=== PATIENT | male | born 1975 | race African-American/Black ===

== ENCOUNTER → 2016-09-07 | Outpatient (CLI) | payer OTHER ==
--- NOTE | 2016-09-07 10:18 | NM ---
EXAMINATION TYPE: NM gastric emptying study DATE OF EXAM: 09/07/2016 COMPARISON: NONE HISTORY: Nausea with vomiting per order. Additional symptoms of epigastric pain, diminished appetite, and heartburn and reflux-like symptoms per patient. Following administration of 2.2 mCi Tc 99m Sulfur Colloid with 1 cup of oatmeal projection images of the abdomen were obtained 10 minutes post ingestion. When possible, both anterior and posterior proje ction images were obtained to allow the calculation of the geometric mean activity. Clearance: 79 % at 60 minutes Half-life: 10 min Reflux screen: None IMPRESSION: No gastroparesis. Abnormally fast emptying is actually noted. Gastric emptying normal percentage values: 30 minutes: <70% of retention (> 30% emptying) suggests abnormally fast emptying. 60 minutes: <90% retention (>10% emptying) is normal; less than 30% retention (>70% emptying) suggest s abnormally rapid emptying. 90 minutes: <65% retention (> 35% emptying) is normal. 120 minutes: <60% retention (> 40% emptying) is normal. 180 minutes: <30% retention (> 70% emptying) is normal. Gastric emptying T-1/2: Solid: The normal range is 60-105 minutes Liquid only: Normal range is 10-45 minutes. Liquid only-children: At 60 minutes, normal range is 44-58 % . Liquid only-infants: At 60 minutes, normal range is 32-64 %. Additional references: Gastric Emptying Scintigraphy [email or web address]://[email or web address]
== END | disposition home or self-care (01) ==
LOC: RADNMMAIN 07:35
PROVIDERS: ATTEND Physician Assistant
DX: R11.2 Nausea with vomiting, unspecified (principal)
CPT/HCPCS: 78264; A9541

== ENCOUNTER → 2017-06-23 | Outpatient (CLI) | payer OTHER ==
--- NOTE | 2017-06-23 11:51 | US ---
EXAMINATION TYPE: US kidneys/renal and bladder DATE OF EXAM: 06/23/2017 COMPARISON: NONE CLINICAL HISTORY: E87.1 Hypotremia. EXAM MEASUREMENTS: Right Kidney: 10.2 x 5.5 x 9.7 cm Left Kidney: 9.7 x 5.1 x 4.8 cm Post Void Residual Volume: 1.1 mL Limited due to bowel gas Right Kidney: appears wnl Left Kidney: appears wnl Bladder: ?thickened bladder wall Bilateral Jets seen: No Normal Post Void Residual: Yes IMPRESSION: 1. No acute abnormality. 2. Possible thickening of the urinary bladder wall. This could be related to incomplete distention.
== END | disposition home or self-care (01) ==
LOC: RADUSWWP 11:00
PROVIDERS: ATTEND Internal Medicine Nephrology
DX: E87.1 Hypo-osmolality and hyponatremia (principal)
CPT/HCPCS: 76770

== ENCOUNTER 2017-06-24 07:44 | Day surgery (SDC) | payer OTHER ==
[2017-06-22 16:23] VITALS: BMI 18.0
[~2017-06-24 07:44] MED LIST: LACTATED RINGERS 1,000 ML IV SCH
[2017-06-24 08:00] VITALS: TEMP 97.1
[2017-06-24] MEDS ORDERED: LIDOCAINE 1% 20 ML VIAL (10MG/ML) FOR IV START INTRADERMA ONE (08:03)
[2017-06-24 08:05] LABS: Glucose,Whole Blood 157 mg/dL (75-99)
[2017-06-24] MEDS ORDERED: PROPOFOL 10 MG/ML 20 ML VIAL IV ONE (08:56)
[2017-06-24] MEDS ORDERED: LIDOCAINE 1% INJ 10MG/ML (20 ML MDV) ONE (08:56)
[2017-06-24 09:35] VITALS: RESP 16
--- NOTE | 2017-06-24 09:39 | P.PCN ---
Date of Procedure: 06/24/17 Procedure(s) Performed: Procedures: 1. Esophagogastroduodenoscopy and biopsy. 2. Colonoscopy and biopsy. Preoperative diagnosis: Abdominal pain and change in bowel habits. Postoperative diagnosis: 1. Small sliding hiatal hernia with no obvious esophagitis or complicated reflux disease. 2. Mild antral gastritis. 3. Poor colon preparation, otherwise, exam to the cecum showed no obvious abnormalities. 4. Biopsies obtained from the duodenum, antrum, esophagus and right colon. Preparation: HalfLytely prep. Sedation: Was provided by anesthesia. Brief clinical history: The patient is a 41-year-old male who was evaluated in the office last month for abdominal pain and change in bowel habits. His pain has been mostly in the epigastric area, intermittent for more than one year. It occurs after meals worse with larger or greasy food. For the last 5 months he has been having 3-4 bowel movement daily and to him it appears oily. A 72- hour stool study for fecal fat was within normal limits. The patient has been on omeprazole 20 mg daily. He has no heartburn or passive regurgitation on this treatment but still have occasional nausea. No more vomiting. He reports feeling full quickly. He was diagnosed with diabetes mellitus in September 2015 and lost 32 pounds in 6 months at that time and his weight has been stable for the last year. His diabetes is not well controlled. This evaluation is to assess for peptic ulcer disease complicated reflux disease or colonic pathology. Procedure: With the patient on his left lateral decubitus position and after informed consent and adequate sedation, I passed the Olympus-GIF 160 video upper endoscope through the cricopharyngeus down the esophagus. GE junction was around 40-41 cm from the incisors and there was a small sliding hiatal hernia but no obvious esophagitis or complicated reflux. The endoscope was then passed into the stomach which was insufflated with air and inspected in detail including the retroflex view in the cardia. There was some mottling and erythema in the antrum but no ulcers or erosions. There were no phytobezoar or other evidence of gastroparesis. Pyloric channel, duodenal bulb, post bulbar area and descending duodenum appeared within normal limits. Because of his symptoms, I obtained biopsies from the duodenum, antrum and esophagus then the endoscope was withdrawn and I proceeded with the colonoscopy. Perianal area did not show any fissures or fistulas. There were no masses felt on digital rectal examination. The Olympus CFQ 160L video colonoscope was then inserted in the rectum in the usual fashion and advanced to the cecum. Unfortunately, the preparation was extremely poor. I did not see any large polyps or tumors or any obstruction. Where visualized, the mucosa appeared healthy. Because of his poor preparation I was not able to intubate the ileocecal valve. I obtained biopsies from the right colon then the endoscope was withdrawn. The patient tolerated the procedure well. Plan I summarized the findings to the patient. Will await biopsy results. He will follow up in our office and with you as planned and we would keep you updated on his progress.
[2017-06-24 09:40] LABS: Glucose,Whole Blood 29 mg/dL (75-99)
[2017-06-24 09:41] LABS: Glucose,Whole Blood 32 mg/dL (75-99)
[2017-06-24] MEDS ORDERED: DEXTROSE 50%-WATER 50 ML SYRINGE IVP ONE (09:41)
[2017-06-24 09:54] LABS: Glucose,Whole Blood 116 mg/dL (75-99)
[2017-06-24 10:01] VITALS: BP 111/65; PULSE 92
== END 2017-06-24 10:22 | disposition home or self-care (01) ==
LOC: ORWHC2ENDO 07:44
DX: K29.50 Unspecified chronic gastritis without bleeding (principal); K44.9 Diaphragmatic hernia without obstruction or gangrene; E11.65 Type 2 diabetes mellitus with hyperglycemia; K21.9 Gastro-esophageal reflux disease without esophagitis; I10 Essential (primary) hypertension; M10.9 Gout, unspecified; D57.1 Sickle-cell disease without crisis; R56.9 Unspecified convulsions; F32.9 Major depressive disorder, single episode, unspecified; F41.9 Anxiety disorder, unspecified; F10.10 Alcohol abuse, uncomplicated; F17.200 Nicotine dependence, unspecified, uncomplicated; Z79.4 Long term (current) use of insulin; Z79.891 Long term (current) use of opiate analgesic; Z79.899 Other long term (current) drug therapy; Z98.1 Arthrodesis status
CPT/HCPCS: 88305; 45380; 43239; J2001; J2704

== ENCOUNTER → 2017-06-25 | Outpatient (CLI) | payer OTHER ==
--- NOTE | 2017-06-25 10:50 | MR ---
EXAMINATION TYPE: MR brain wo/w con DATE OF EXAM: 06/25/2017 COMPARISON: NONE HISTORY: Tinnitus, left ear CONTRAST: Performed utilizing 5 mL intravenous Gadavist gadolinium contrast. TECHNIQUE: Multiplanar, multiecho imaging on a 3.0 Stephanie magnet is performed through the brain. Stud y is performed within 24 hours of arrival to the hospital. The craniovertebral junction is normal. The pituitary is normal. Diffusion-weighted imaging is performed. No abnormal hyperintensity is present to suggest an acute i ntracranial infarct or acute ischemic change. There are couple punctate subcortical white matter changes near the left centrum semiovale vertex. Th maría are nonspecific and not out of proportion to the patient age. No abnormal enhancement is evident. Ventricles and sulci are appropriate for the patient age. There are fluid-filled left mastoid air cells. Correlate for acute left mastoiditis. Some mild mucosa l thickening is within ethmoid air cells. IMPRESSIONS: 1. Normal pre and postcontrast intracranial MRI brain. 2. Fluid within the left mastoid air cells. Correlate for acute left mastoiditis.
== END | disposition home or self-care (01) ==
LOC: RADMRIMAIN 09:58
PROVIDERS: ATTEND Family Medicine
DX: H74.8X2 Other specified disorders of left middle ear and mastoid (principal)
CPT/HCPCS: 70553; A9581

== ENCOUNTER → 2017-07-13 | Outpatient (CLI) | payer OTHER ==
--- NOTE | 2017-07-13 08:53 | XR ---
EXAMINATION TYPE: XR foot complete LT DATE OF EXAM: 07/13/2017 CLINICAL HISTORY: pain TECHNIQUE: Frontal, lateral and oblique images of the left foot are obtained. COMPARISON: None. FINDINGS: Bunionectomy changes first metatarsal. There is no acute fracture/dislocation evident. The joint spaces appear within normal limits. The overlying soft tissue appears unremarkable. IMPRESSION: There is no acute fracture or dislocation. ICD 10 NO FRACTURE, INITIAL EVALUATION
[2017-07-13 08:57] LABS: Blood Urea Nitrogen 10 mg/dL (9-20)
--- NOTE | 2017-07-13 11:41 | CT ---
EXAMINATION TYPE: CT abdomen pelvis w con DATE OF EXAM: 07/13/2017 COMPARISON: NONE HISTORY: Abnormal weight loss per order and patient (R 63.4). CT DLP: 351.10 mGycm, Automated Exposure Control for Dose Reduction was Utilized. CONTRAST: CT scan of the abdomen and pelvis is performed with oral and with IV Contrast, patient injected with 100 ml mL of Isovue 300. FINDINGS: Patient has very little intra-abdominal fat making evaluation suboptimal. LUNG BASES: No significant abnormality is appreciated. LIVER/GB: No significant abnormality is appreciated. PANCREAS: Pancreas is small in size with calcifications throughout its entire course. CT findings are consistent with product of chronic pancreatitis. SPLEEN: No significant abnormality is seen. ADRENALS: No significant abnormality is seen. KIDNEYS: There is symmetric cortical medullary uptake and excretion from both kidneys without evidenc e of concerning renal mass or hydronephrosis bilaterally. A few scattered pelvic phleboliths are pres ent. BOWEL: Oral contrast does not reach colonic level making evaluation slightly submitted optimal. There is no suspicious dilatation of stomach or small bowel loops. There is small bowel feces sign in the terminal ileum consistent with delayed passage of ingested material 2 colonic level. There is promine nce of fecal material throughout the entire visualized colon into rectum. PROSTATE/SEMINAL VESICLES: No gross abnormality seen. LYMPH NODES: No greater than 1cm abdominal or pelvic lymph nodes are appreciated. OSSEOUS STRUCTURES: No significant abnormality is seen. OTHER: There is mild to moderate calcified plaque of aorta extending into branch vessels. IMPRESSION: 1. No worrisome mass or adenopathy is seen. 2. Overall nonobstructive bowel gas pattern. Fairly moderate to severe diffuse colonic fecal stasis o r constipation is noted. CT findings consistent with chronic pancreatitis are present.
== END | disposition home or self-care (01) ==
LOC: RADCTMAIN 08:04
PROVIDERS: ATTEND Internal Medicine Gastroenterology
DX: M79.672 Pain in left foot (principal); R63.4 Abnormal weight loss; R19.5 Other fecal abnormalities
CPT/HCPCS: 82565; 84520; 73630; 74177; 36415; Q9967

== ENCOUNTER 2018-04-04 23:23 | Observation (INO) | payer OTHER ==
[2018-04-04] MEDS ORDERED: HYDROmorphone 1 MG/ML 1 ML SYRINGE IVP STA (23:42)
[2018-04-04] MEDS ORDERED: SODIUM CHLORIDE 0.9% 500 ML 500 ML IV STA (23:42)
[2018-04-04] MEDS ORDERED: SODIUM CHLORIDE 0.9% 1,000 ML IV STA (23:42)
[2018-04-04] MEDS ORDERED: FAMOTIDINE 20 MG/2 ML VIAL IV STA (23:43)
--- NOTE | 2018-04-05 00:03 | ED ---
Abdominal Pain HPI <Anahi Fuentes Guy - Last Filed: 04/05/18 02:32> - General Source: patient, RN notes reviewed Mode of arrival: ambulatory Limitations: no limitations - History of Present Illness MD Complaint: abdominal pain, other <Cristhian Forde - Last Filed: 04/06/18 17:25> - General Chief Complaint: Abdominal Pain Stated Complaint: Vomiting, Abd Pain Time Seen by Provider: 04/04/18 23:33 - History of Present Illness Initial Comments: This is a 42-year-old male who states he's had the onset of upper epigastric pain with coffee-ground emesis and black colored stools over last at least couple days. He does admit that he had been taking Pepto-Bismol but he states coffee-ground emesis was both before and after taking Pepto-Bismol. He states the pain is 10/10 achy in nature he's had no fevers chills nausea vomiting sweats he does have a history of fatty liver cancer pancreatic issues. No prior abdominal surgeries he denies any recent alcohol a history of ulcers in the past a trauma any other symptoms at this time. No prior history of GI bleed. (Cristhian Forde) - Related Data Home Medications Medication Instructions Recorded Confirmed Folic Acid 1 mg PO DAILY 10/04/13 04/05/18 Lisinopril [Zestril] 10 mg PO DAILY 10/04/13 04/05/18 Thiamine [Vitamin B-1] 100 mg PO DAILY 10/04/13 04/05/18 Hydrocodone/Acetaminophen [Sutherland 1 tab PO BID PRN 09/18/15 04/05/18 7.5-325] Lacosamide [Vimpat] 100 mg PO BID 09/18/15 04/05/18 Potassium Chloride ER [K-Dur 10] 10 meq PO DAILY 09/18/15 04/05/18 levETIRAcetam [Keppra] 500 mg PO BID 11/11/15 04/05/18 Magnesium Oxide [Mag-Ox] 400 mg PO BID 06/22/17 04/05/18 PARoxetine HCL [Paxil] 30 mg PO DAILY 06/22/17 04/05/18 Atorvastatin [Lipitor] 10 mg PO DAILY 04/05/18 04/05/18 INSULIN LISPRO (For Pump) [humaLOG 0.01 units SQ-PUMP CONTINUOUS 04/05/18 (For Pump)] Lipase/Protease/Amylase [Aj Roman 24,000 units PO TID 04/05/18 04/05/18 12,000 Units Capsule] QUEtiapine [SEROquel] 100 mg PO HS 04/05/18 04/05/18 Vitamin D2 20,000 Units 20,000 units PO MO 04/05/18 04/05/18 Previous Rx's Medication Instructions Recorded Mirtazapine [Remeron] 45 mg PO HS tablet 04/06/18 Pantoprazole Sodium [Protonix] 40 mg PO DAILY #15 tablet. 04/06/18 Allergies Allergy/AdvReac Type Severity Reaction Status Date / Time No Known Allergies Allergy Verified 04/05/18 06:44 Review of Systems ROS Other: All systems not noted in ROS Statement are negative. <Anahi Fuentes - Last Filed: 04/05/18 02:32> ROS Other: All systems not noted in ROS Statement are negative. <Cristhian Forde - Last Filed: 04/06/18 17:25> ROS Statement: Those systems with pertinent positive or pertinent negative responses have been documented in the HPI. Past Medical History Past Medical History: Diabetes Mellitus, GERD/Reflux, Hyperlipidemia, Hypertension, Seizure Disorder Additional Past Medical History / Comment(s): past metabolic encephalopathy from seizure disorder, recurrent seizure disorder r/t missed meds, chronic alcohol usage, gout, hypoalbuminemia from alcoholism, HTN. Other hx: anemia with sickle cell "trait" per significant other, abdominal pain with vomiting and diarrhea over past 6 months-was to have upper and lower endoscopies but pt cancelled.ringing in his ears History of Any Multi-Drug Resistant Organisms: None Reported Past Surgical History: Back Surgery Additional Past Surgical History / Comment(s): 2013 egd with bx, left toe surgery with 2 screws Past Anesthesia/Blood Transfusion Reactions: No Reported Reaction Past Psychological History: Anxiety, Depression Smoking Status: Current every day smoker Past Alcohol Use History: Occasional Past Drug Use History: Marijuana - Past Family History Father Family Medical History: Unable to Obtain Additional Family Medical History / Comment(s): Father was murdered in his 30's Mother Family Medical History: No Reported History, Hypertension Additional Family Medical History / Comment(s): Mother is 64 yrs old Brother(s) Family Medical History: Hypertension Sister(s) Family Medical History: Hypertension <Cristhian Forde - Last Filed: 04/06/18 17:25> General Exam <Anahi Fuentes P - Last Filed: 04/05/18 02:32> Limitations: no limitations General appearance: alert, in no apparent distress Head exam: Present: atraumatic, normocephalic, normal inspection Eye exam: Present: normal appearance, PERRL, EOMI. Absent: scleral icterus, conjunctival injection, periorbital swelling ENT exam: Present: normal exam, mucous membranes moist Neck exam: Present: normal inspection. Absent: tenderness, meningismus, lymphadenopathy Respiratory exam: Present: normal lung sounds bilaterally. Absent: respiratory distress, wheezes, rales, rhonchi, stridor Cardiovascular Exam: Present: regular rate, normal rhythm, normal heart sounds. Absent: systolic murmur, diastolic murmur, rubs, gallop, clicks GI/Abdominal exam: Present: soft, tenderness (Tenderness palpation of the epigastrium no guarding rebound masses or bruits), normal bowel sounds. Absent : distended, guarding, rebound, rigid Rectal exam: Present: normal inspection, other (Dark greenish black stool Hemoccult is pending) Extremities exam: Present: normal inspection, full ROM, normal capillary refill. Absent: tenderness, pedal edema, joint swelling, calf tenderness Back exam: Present: normal inspection Neurological exam: Present: alert, oriented X3, CN II-XII intact Psychiatric exam: Present: normal affect, normal mood Skin exam: Present: warm, dry, intact, normal color. Absent: rash <Cristhian Forde - Last Filed: 04/06/18 17:25> - General Exam Comments Initial Comments: This a well-developed sec appearing male who is awake alert oriented 3 (Cristhian Forde) Course <Anahi Fuentes - Last Filed: 04/05/18 02:32> <Cristhian Forde - Last Filed: 04/06/18 17:25> Vital Signs 04/04/18 04/05/18 04/05/18 23:29 02:29 06:36 Temperature 97.7 F Pulse Rate 104 H 72 78 Respiratory 18 16 16 Rate Blood Pressure 102/68 106/66 100/71 O2 Sat by Pulse 99 100 100 Oximetry - Reevaluation(s) Reevaluation #1: 04/05/18 01:00 The case is endorsed to Dr. Fuentes at shift change (Cristhian Forde) Medical Decision Making - Lab Data Result diagrams: 04/05/18 00:26 04/05/18 00:26 <Anahi Fuentes - Last Filed: 04/05/18 02:32> - Lab Data Result diagrams: 04/06/18 09:35 04/06/18 09:35 <Cristhian Forde - Last Filed: 04/06/18 17:25> - Medical Decision Making Patient care was signed out to me by Dr. Forde at shift change. At that time labs are pending. Patient's labs resulted with a critical lactic acidosis of 4.7. Additional IV fluid rehydration was ordered as well as a computed tomography scan of the abdomen Computed tomography scan revealed dilated loops of bowel consistent with an ileus. No other acute findings were noted. At this time I'll plan to admit the patient for abdominal pain, lactic acidosis and need for rehydration. (Anahi Fuentes) - Lab Data Lab Results 04/05/18 04/05/18 04/05/18 Range/Units 00:26 00:26 00:26 WBC 11.4 H (3.8-10.6) k/uL RBC 4.24 L (4.30-5.90) m/uL Hgb 12.6 L (13.0-17.5) gm/dL Hct 38.4 L (39.0-53.0) % MCV 90.5 (80.0-100.0) fL MCH 29.7 (25.0-35.0) pg MCHC 32.8 (31.0-37.0) g/dL RDW 12.8 (11.5-15.5) % Plt Count 193 (150-450) k/uL Neutrophils % 54 % Lymphocytes % 33 % Monocytes % 7 % Eosinophils % 4 % Basophils % 1 % Neutrophils # 6.1 (1.3-7.7) k/uL Lymphocytes # 3.7 (1.0-4.8) k/uL Monocytes # 0.8 (0-1.0) k/uL Eosinophils # 0.4 (0-0.7) k/uL Basophils # 0.1 (0-0.2) k/uL PT (9.0-12.0) sec INR (<1.2) APTT (22.0-30.0) sec Sodium 135 L (137-145) mmol/L Potassium 4.0 (3.5-5.1) mmol/L Chloride 92 L (98-107) mmol/L Carbon Dioxide 25 (22-30) mmol/L Anion Gap 18 mmol/L BUN 22 H (9-20) mg/dL Creatinine 1.18 (0.66-1.25) mg/dL Est GFR (CKD-EPI)AfAm 86 (>60 ml/min/1.73 sqM) Est GFR (CKD-EPI)NonAf 75 (>60 ml/min/1.73 sqM) Glucose 215 H (74-99) mg/dL Lactic Ac Sepsis Rflx Plasma Lactic Acid Erlin (0.7-2.0) mmol/L Calcium 11.0 H (8.4-10.2) mg/dL Total Bilirubin 0.8 (0.2-1.3) mg/dL AST 105 H (17-59) U/L ALT 74 H (21-72) U/L Alkaline Phosphatase 113 (38-126) U/L Total Creatine Kinase 56 (55-170) U/L CK-MB (CK-2) 1.2 (0.0-2.4) ng/mL CK-MB (CK-2) Rel Index 2.1 Troponin I <0.012 (0.000-0.034) ng/mL Total Protein 9.1 H (6.3-8.2) g/dL Albumin 5.3 H (3.5-5.0) g/dL Amylase 81 (30-110) U/L Lipase 10 L (23-300) U/L Urine Color Urine Appearance (Clear) Urine pH (5.0-8.0) Ur Specific [place] (1.001-1.035) Urine Protein (Negative) Urine Glucose (UA) (Negative) Urine Ketones (Negative) Urine Blood (Negative) Urine Nitrite (Negative) Urine Bilirubin (Negative) Urine Urobilinogen (<2.0) mg/dL Ur Leukocyte Esterase (Negative) Stool Occult Blood (Negative) Blood Type Blood Type Confirm Blood Type Recheck Antibody Screen Spec Expiration Date 04/05/18 04/05/18 04/05/18 Range/Units 00:26 00:26 00:26 WBC (3.8-10.6) k/uL RBC (4.30-5.90) m/uL Hgb (13.0-17.5) gm/dL Hct (39.0-53.0) % MCV (80.0-100.0) fL MCH (25.0-35.0) pg MCHC (31.0-37.0) g/dL RDW (11.5-15.5) % Plt Count (150-450) k/uL Neutrophils % % Lymphocytes % % Monocytes % % Eosinophils % % Basophils % % Neutrophils # (1.3-7.7) k/uL Lymphocytes # (1.0-4.8) k/uL Monocytes # (0-1.0) k/uL Eosinophils # (0-0.7) k/uL Basophils # (0-0.2) k/uL PT 11.3 (9.0-12.0) sec INR 1.1 (<1.2) APTT 22.3 (22.0-30.0) sec Sodium (137-145) mmol/L Potassium (3.5-5.1) mmol/L Chloride (98-107) mmol/L Carbon Dioxide (22-30) mmol/L Anion Gap mmol/L BUN (9-20) mg/dL Creatinine (0.66-1.25) mg/dL Est GFR (CKD-EPI)AfAm (>60 ml/min/1.73 sqM) Est GFR (CKD-EPI)NonAf (>60 ml/min/1.73 sqM) Glucose (74-99) mg/dL Lactic Ac Sepsis Rflx Plasma Lactic Acid Erlin 4.7 H* (0.7-2.0) mmol/L Calcium (8.4-10.2) mg/dL Total Bilirubin (0.2-1.3) mg/dL AST (17-59) U/L ALT (21-72) U/L Alkaline Phosphatase (38-126) U/L Total Creatine Kinase (55-170) U/L CK-MB (CK-2) (0.0-2.4) ng/mL CK-MB (CK-2) Rel Index Troponin I (0.000-0.034) ng/mL Total Protein (6.3-8.2) g/dL Albumin (3.5-5.0) g/dL Amylase (30-110) U/L Lipase (23-300) U/L Urine Color Urine Appearance (Clear) Urine pH (5.0-8.0) Ur Specific [place] (1.001-1.035) Urine Protein (Negative) Urine Glucose (UA) (Negative) Urine Ketones (Negative) Urine Blood (Negative) Urine Nitrite (Negative) Urine Bilirubin (Negative) Urine Urobilinogen (<2.0) mg/dL Ur Leukocyte Esterase (Negative) Stool Occult Blood (Negative) Blood Type O Negative Blood Type Confirm Blood Type Recheck CABO Indicated Antibody Screen NEGATIVE Spec Expiration Date 04/08/2018232504/05/18 04/05/18 04/05/18 Range/Units 00:26 01:14 01:32 WBC (3.8-10.6) k/uL RBC (4.30-5.90) m/uL Hgb (13.0-17.5) gm/dL Hct (39.0-53.0) % MCV (80.0-100.0) fL MCH (25.0-35.0) pg MCHC (31.0-37.0) g/dL RDW (11.5-15.5) % Plt Count (150-450) k/uL Neutrophils % % Lymphocytes % % Monocytes % % Eosinophils % % Basophils % % Neutrophils # (1.3-7.7) k/uL Lymphocytes # (1.0-4.8) k/uL Monocytes # (0-1.0) k/uL Eosinophils # (0-0.7) k/uL Basophils # (0-0.2) k/uL PT (9.0-12.0) sec INR (<1.2) APTT (22.0-30.0) sec Sodium (137-145) mmol/L Potassium (3.5-5.1) mmol/L Chloride (98-107) mmol/L Carbon Dioxide (22-30) mmol/L Anion Gap mmol/L BUN (9-20) mg/dL Creatinine (0.66-1.25) mg/dL Est GFR (CKD-EPI)AfAm (>60 ml/min/1.73 sqM) Est GFR (CKD-EPI)NonAf (>60 ml/min/1.73 sqM) Glucose (74-99) mg/dL Lactic Ac Sepsis Rflx Y Plasma Lactic Acid Erlin (0.7-2.0) mmol/L Calcium (8.4-10.2) mg/dL Total Bilirubin (0.2-1.3) mg/dL AST (17-59) U/L ALT (21-72) U/L Alkaline Phosphatase (38-126) U/L Total Creatine Kinase (55-170) U/L CK-MB (CK-2) (0.0-2.4) ng/mL CK-MB (CK-2) Rel Index Troponin I (0.000-0.034) ng/mL Total Protein (6.3-8.2) g/dL Albumin (3.5-5.0) g/dL Amylase (30-110) U/L Lipase (23-300) U/L Urine Color Yellow Urine Appearance Clear (Clear) Urine pH 5.0 (5.0-8.0) Ur Specific [place] 1.011 (1.001-1.035) Urine Protein Negative (Negative) Urine Glucose (UA) Negative (Negative) Urine Ketones Negative (Negative) Urine Blood Negative (Negative) Urine Nitrite Negative (Negative) Urine Bilirubin Negative (Negative) Urine Urobilinogen <2.0 (<2.0) mg/dL Ur Leukocyte Esterase Negative (Negative) Stool Occult Blood Negative (Negative) Blood Type Blood Type Confirm Blood Type Recheck Antibody Screen Spec Expiration Date 04/05/18 Range/Units 01:42 WBC (3.8-10.6) k/uL RBC (4.30-5.90) m/uL Hgb (13.0-17.5) gm/dL Hct (39.0-53.0) % MCV (80.0-100.0) fL MCH (25.0-35.0) pg MCHC (31.0-37.0) g/dL RDW (11.5-15.5) % Plt Count (150-450) k/uL Neutrophils % % Lymphocytes % % Monocytes % % Eosinophils % % Basophils % % Neutrophils # (1.3-7.7) k/uL Lymphocytes # (1.0-4.8) k/uL Monocytes # (0-1.0) k/uL Eosinophils # (0-0.7) k/uL Basophils # (0-0.2) k/uL PT (9.0-12.0) sec INR (<1.2) APTT (22.0-30.0) sec Sodium (137-145) mmol/L Potassium (3.5-5.1) mmol/L Chloride (98-107) mmol/L Carbon Dioxide (22-30) mmol/L Anion Gap mmol/L BUN (9-20) mg/dL Creatinine (0.66-1.25) mg/dL Est GFR (CKD-EPI)AfAm (>60 ml/min/1.73 sqM) Est GFR (CKD-EPI)NonAf (>60 ml/min/1.73 sqM) Glucose (74-99) mg/dL Lactic Ac Sepsis Rflx Plasma Lactic Acid Erlin (0.7-2.0) mmol/L Calcium (8.4-10.2) mg/dL Total Bilirubin (0.2-1.3) mg/dL AST (17-59) U/L ALT (21-72) U/L Alkaline Phosphatase (38-126) U/L Total Creatine Kinase (55-170) U/L CK-MB (CK-2) (0.0-2.4) ng/mL CK-MB (CK-2) Rel Index Troponin I (0.000-0.034) ng/mL Total Protein (6.3-8.2) g/dL Albumin (3.5-5.0) g/dL Amylase (30-110) U/L Lipase (23-300) U/L Urine Color Urine Appearance (Clear) Urine pH (5.0-8.0) Ur Specific [place] (1.001-1.035) Urine Protein (Negative) Urine Glucose (UA) (Negative) Urine Ketones (Negative) Urine Blood (Negative) Urine Nitrite (Negative) Urine Bilirubin (Negative) Urine Urobilinogen (<2.0) mg/dL Ur Leukocyte Esterase (Negative) Stool Occult Blood (Negative) Blood Type Blood Type Confirm O Negative Blood Type Recheck Antibody Screen Spec Expiration Date Disposition <Anahi Fuentes - Last Filed: 04/05/18 02:32> <Cristhian Forde - Last Filed: 04/06/18 17:25> Clinical Impression: Acute abdomen, Ileus, Dehydration, Lactic acidosis Disposition: ADMITTED IP TO THIS HOSP Condition: Stable
[2018-04-05 00:45] LABS: Basophils # (A) 0.1 k/uL (0-0.2); Basophils % (A) 1 %; Eosinophils # (A) 0.4 k/uL (0-0.7); Eosinophils % (A) 4 %; HCT 38.4 % (39.0-53.0); HGB 12.6 gm/dL (13.0-17.5); Lymphocytes # (A) 3.7 k/uL (1.0-4.8); Lymphocytes % (A) 33 %; MCH 29.7 pg (25.0-35.0); MCHC 32.8 g/dL (31.0-37.0); MCV 90.5 fL (80.0-100.0); Mean Platelet Volume 7.6; Monocytes # (A) 0.8 k/uL (0-1.0); Monocytes % (A) 7 %; Neutrophils # (A) 6.1 k/uL (1.3-7.7); Neutrophils % (A) 54 %; Platelet Count 193 k/uL (150-450); RBC 4.24 m/uL (4.30-5.90); RDW 12.8 % (11.5-15.5); WBC 11.4 k/uL (3.8-10.6)
--- NOTE | 2018-04-05 00:58 | XR ---
EXAMINATION TYPE: XR KUB DATE OF EXAM: 04/05/2018 COMPARISON: NONE HISTORY: Abdominal pain TECHNIQUE: 2 views upright FINDINGS: There is no sign of intestinal obstruction or pneumoperitoneum. Fecal pattern is normal. Dorys ng bases are clear. There are no pathologic calcifications over the kidneys. IMPRESSION: Nonacute abdomen.
[2018-04-05 01:01] LABS: Albumin 5.3 g/dL (3.5-5.0); Total Bilirubin 0.8 mg/dL (0.2-1.3); Total Protein 9.1 g/dL (6.3-8.2)
[2018-04-05 01:02] LABS: INR 1.1 (<1.2); Partial Thromboplastin Time 22.3 sec (22.0-30.0); Prothrombin Time 11.3 sec (9.0-12.0)
[2018-04-05 01:10] LABS: Creatine Kinase 56 U/L (55-170)
[2018-04-05 01:23] LABS: Creatine Kinase MB 1.2 ng/mL (0.0-2.4); Troponin I <0.012 ng/mL (0.000-0.034)
[2018-04-05 01:54] LABS: Appearance,Urine Clear (Clear); Bilirubin,Urine Negative (Negative); Blood,Urine Negative (Negative); Color,Urine Yellow; Glucose,Urine (UA) Negative (Negative); Ketones,Urine Negative (Negative); Leukocyte Esterase,Urine Negative (Negative); Nitrite,Urine Negative (Negative); Protein,Urine Negative (Negative); Specific Gravity,Urine 1.011 (1.001-1.035); Urobilinogen,Urine <2.0 mg/dL (<2.0)
--- NOTE | 2018-04-05 01:57 | CT ---
EXAMINATION TYPE: CT abdomen pelvis w con DATE OF EXAM: 04/05/2018 COMPARISON: 07/13/2017 HISTORY: abd pain CT DLP: 416.7 mGycm Automated exposure control for dose reduction was used. TECHNIQUE: Helical acquisition of images was performed from the lung bases through the pelvis. CONTRAST: Performed without Oral Contrast and with IV Contrast, patient injected with 100 mL of Isovue 300. FINDINGS: Lung bases are clear. There is no pleural effusion. Heart appears normal. There is no pericardial eff usion. There is small hiatal hernia. Liver shows no focal defect. Gallbladder appears normal. Bile du cts are not dilated. There is no evidence of splenic mass. There is extensive carotid calcification. There is no evidence of pancreatic mass. There is no adrenal mass. Kidneys show satisfactory contrast opacification. There is no hydronephrosi s. There is no retroperitoneal adenopathy. There is no free fluid in the pelvis. Bladder distends smo othly. There is no inguinal hernia. There is no sign of a pelvic mass. Abdominal aorta is atheromatou s. There are some fluid-filled loops of small bowel that measure up to 3 cm. There is no evidence of mesenteric edema. There is no sign of free air. I see no intestinal wall thickening. Appendix is not seen. There is no sign of appendicitis. LUMBAR VERTEBRA HAVE NORMAL SPACING AND ALIGNMENT. THERE IS NO COMPRESSION FRACTURE. IMPRESSION: THERE ARE A FEW SMALL BOWEL LOOPS DISTENDED WITH FLUID IN THE LEFT UPPER QUADRANT CONSISTENT WITH ILE US. I SEE NO TRANSITION POINT. THIS APPEARS NEW COMPARED TO OLD EXAM. THERE IS CLEARING OF THE CONSTI PATION COMPARED TO OLD EXAM. EXTENSIVE PANCREATIC CALCIFICATION CONSISTENT WITH CHRONIC PANCREATITIS UNCHANGED.
[2018-04-05] MEDS ORDERED: IBUPROFEN 400 MG TAB PO PRN (02:28)
[2018-04-05] MEDS ORDERED: SODIUM CHLORIDE 0.9% 1,000 ML IV ONE (02:28)
[2018-04-05] MEDS ORDERED: NALOXONE 0.4 MG/ML 1 ML VIAL IV PRN (02:28)
[2018-04-05] MEDS ORDERED: ACETAMINOPHEN TAB 325 MG TAB PO PRN (02:28)
[2018-04-05] MEDS ORDERED: HYDROcodone/APAP 7.5-325MG 1 EACH TAB PO PRN (02:30)
[2018-04-05] MEDS ORDERED: PNEUMOCOCCAL VACC-PNEUMOVAX 23 25 MCG/0.5 ML VIAL IM ONE (09:51)
[2018-04-05] MEDS ORDERED: INFLUENZA VACCINE (6 MOS+) 60 MCG/0.5 ML SYRINGE IM ONE (09:51)
[2018-04-05] MEDS: MORPHINE SULFATE 4 MG/ML SYRINGE IV PRN ×2 (11:16→22:21)
[2018-04-05] MEDS: FAMOTIDINE 20 MG TAB PO SCH ×2 (11:17→22:20)
[2018-04-05] MEDS: levETIRAcetam 500 MG TAB PO SCH ×2 (11:21→22:21)
[2018-04-05] MEDS: LISINOPRIL 10 MG TAB PO SCH (11:21)
[2018-04-05] MEDS: PARoxetine 10 MG TAB PO SCH (11:21)
[2018-04-05 12:36] LABS: Glucose,Whole Blood 156 mg/dL (75-99)
--- NOTE | 2018-04-05 14:06 | P.HPIM ---
History of Present Illness this is a pleasant 42 [facility] old [facility] Americanmale with past medical history of diabetes mellitus, hypertension, hyperlipidemia, GERD, seizure disorder, diabetic neuropathy, fatty liver, occasional low back pain.he presents because of abdominal pain. Patient states that his pain was in the epigastrium, severe 10/10 in severity on admission when he started 1-2 days ago coming down to 1/10 in severity currently. Lack some sick wheeze, nonradiating. Associated with black stool and blood in his vomiting as he has some nausea and vomiting as well. on admission Vitas looks stable. He has mild leukocytosis at 11.4. BMP was unremarkable except for mild hyponatremia. High lactic acid of 4.7 came back to normal 0.9.CT of the abdomen with contrast showing diffuse small bowel loops distended with fluid in the left upper quadrant consistent with ileus, with extensive pancreatic calcification consistent with chronic pancreatitis, and change Review of Systems CONSTITUTIONAL: No fever, no malaise, no fatigue. HEENT: No recent visual problems or hearing problems. Denied any sore throat. CARDIOVASCULAR: No orthopnea, PND, no palpitations, no syncope. PULMONARY: No shortness of breath, no cough, no hemoptysis. GASTROINTESTINAL: No diarrhea, no nausea, no vomiting, no abdominal pain. Normoactive bowel sounds. NEUROLOGICAL: No headaches, no weakness, no numbness. HEMATOLOGICAL: Denies any bleeding or petechiae. GENITOURINARY: Denies any burning micturition, frequency, or urgency. MUSCULOSKELETAL/RHEUMATOLOGICAL: Denies any joint pain, swelling, or any muscle pain. ENDOCRINE: Denies any polyuria or polydipsia. Past Medical History Past Medical History: Diabetes Mellitus, GERD/Reflux, Hyperlipidemia, Hypertension, Liver Disease, Seizure Disorder Additional Past Medical History / Comment(s): IDDM type I with insulin pump, DKA , neuropathy bilateral feet, metabolic encephalitis post seizure, seizures-last one 2015, fatty liver, occasional low back pain, gastritis, hiatal hernina, abdominal pain/vomiting and diarrhea at times, gout bilateral feet. History of Any Multi-Drug Resistant Organisms: None Reported Past Surgical History: Back Surgery Additional Past Surgical History / Comment(s): EGDs/colonoscopies, low back spinal fusion, L toes with screws/bunionectomy. Past Anesthesia/Blood Transfusion Reactions: Motion Sickness Smoking Status: Current every day smoker - Past Family History Father Family Medical History: Unable to Obtain Additional Family Medical History / Comment(s): Father was murdered in his 30's Mother Family Medical History: No Reported History, Hypertension Additional Family Medical History / Comment(s): Mother is 64 yrs old. Mother is 64 yrs old Brother(s) Family Medical History: Hypertension Sister(s) Family Medical History: Hypertension Medications and Allergies Home Medications Medication Instructions Recorded Confirmed Type Folic Acid 1 mg PO DAILY 10/04/13 04/05/18 History Lisinopril [Zestril] 10 mg PO DAILY 10/04/13 04/05/18 History Thiamine [Vitamin B-1] 100 mg PO DAILY 10/04/13 04/05/18 History Omeprazole [PriLOSEC] 20 mg PO AC-BRKFST 02/28/15 04/05/18 History Hydrocodone/Acetaminophen [[place] 1 tab PO BID PRN 09/18/15 04/05/18 History 7.5-325] Lacosamide [Vimpat] 100 mg PO BID 09/18/15 04/05/18 History Potassium Chloride ER [K-Dur 10] 10 meq PO DAILY 09/18/15 04/05/18 History levETIRAcetam [Keppra] 500 mg PO BID 11/11/15 04/05/18 History Magnesium Oxide [Mag-Ox] 400 mg PO BID 06/22/17 04/05/18 History PARoxetine HCL [Paxil] 30 mg PO DAILY 06/22/17 04/05/18 History Atorvastatin [Lipitor] 10 mg PO DAILY 04/05/18 04/05/18 History INSULIN LISPRO (For Pump) [humaLOG 0.01 units SQ-PUMP CONTINUOUS 04/05/18 History (For Pump)] Lipase/Protease/Amylase [Aj Dr 24,000 units PO TID 04/05/18 04/05/18 History 12,000 Units Capsule] QUEtiapine [SEROquel] 100 mg PO HS 04/05/18 04/05/18 History Vitamin D2 20,000 Units 20,000 units PO MO 04/05/18 04/05/18 History Allergies Allergy/AdvReac Type Severity Reaction Status Date / Time No Known Allergies Allergy Verified 04/05/18 06:44 Physical Exam Vitals: Vital Signs Temp Pulse Resp BP Pulse Ox 04/05/18 06:36 78 16 100/71 100 04/05/18 02:29 72 16 106/66 100 04/04/18 23:29 97.7 F 104 H 18 102/68 99 Intake and Output 04/04/18 04/05/18 04/05/18 22:59 06:59 14:59 Other: Weight 53.524 kg GENERAL: The patient is alert and oriented x3, not in any acute distress. Well developed, well nourished. HEENT: Pupils are round and equally reacting to light. EOMI. No scleral icterus. No conjunctival pallor. Normocephalic, atraumatic. No pharyngeal erythema. No thyromegaly. CARDIOVASCULAR: S1 and S2 present. No murmurs, rubs, or gallops. PULMONARY: Chest is clear to auscultation, no wheezing or crackles. -ABDOMEN: Soft, epigastric tenderness with no rebound tenderness or guarding, nondistended, normoactive bowel sounds. No palpable organomegaly. MUSCULOSKELETAL: No joint swelling or deformity. EXTREMITIES: No cyanosis, clubbing, or pedal edema. NEUROLOGICAL: Gross neurological examination did not reveal any focal deficits. SKIN: No rashes. Results CBC & Chem 7: 04/05/18 00:26 04/05/18 00:26 Labs: Abnormal Lab Results - Last 24 Hours (Table) 04/05/18 04/05/18 04/05/18 Range/Units 00:26 00:26 00:26 WBC 11.4 H (3.8-10.6) k/uL RBC 4.24 L (4.30-5.90) m/uL Hgb 12.6 L (13.0-17.5) gm/dL Hct 38.4 L (39.0-53.0) % Sodium 135 L (137-145) mmol/L Chloride 92 L (98-107) mmol/L BUN 22 H (9-20) mg/dL Glucose 215 H (74-99) mg/dL Plasma Lactic Acid Erlin 4.7 H* (0.7-2.0) mmol/L Calcium 11.0 H (8.4-10.2) mg/dL AST 105 H (17-59) U/L ALT 74 H (21-72) U/L Total Protein 9.1 H (6.3-8.2) g/dL Albumin 5.3 H (3.5-5.0) g/dL Lipase 10 L (23-300) U/L Thrombosis Risk Factor Assmnt - Choose All That Apply Any of the Below Risk Factors Present?: Yes Each Factor Represents 1 point: Age 41-60 years Other Risk Factors: No Other congenital or acquired thrombophilia - If yes, enter type in comment: No Thrombosis Risk Factor Assessment Total Risk Factor Score: 1 Thrombosis Risk Factor Assessment Level: Low Risk Assessment and Plan Assessment: ileus versus early small bowel obstruction black stool and blood in vomiting History of insulin-dependent diabetes mellitus Hypertension, essential Hyperlipidemia GERD Fatty liver history of Seizure disorder diabetic neuropathy Plan: this is a pleasant 42 years old male who presents because of abdominal pain. Keep the patient nothing by mouth, call surgical S consult. Pain management and IV fluids. Consult GI too. he was on ibuprofen which was stopped.Labs and medication were reviewed..pain management. Continue same treatment. Continue with symptomatic treatment. Resume home medication. Monitor lytes and vitals. DVT and GI prophylaxis. Further recommendations of the clinical course of the patient DVT prophylaxis: no heparin review of possible GI bleed. Mechanical GI Prophylaxis: Pepcid Prognosis is guarded
[2018-04-05] MEDS: SODIUM CHLORIDE 0.9% 1,000 ML IV SCH (14:19)
--- NOTE | 2018-04-05 15:18 | P.GSCN ---
History of Present Illness Consult date: 04/05/18 Reason for Consult: abdominal pain Requesting physician: Mac E Boyd History of present illness: CHIEF COMPLAINT: Abdominal pain. Ileus HISTORY OF PRESENT ILLNESS: 42-year-old -[place] male who presented to the emergency room due to abdominal pain. Reports the pain was near the epigastric region and became so severe he presented to the ER. However, at the time of exam patient denies any pain. States he feels well and wants something to eat. Patient reports black stools over the past few days, but also reports taking Pepto Bismol. He currently denies nausea or vomiting. IMAGIN. CT Abdomen and pelvis completed in the emergency room reveals a few small bowel loops distended with fluid in the left upper quadrant consistent with ileus. This appears new compared to old exam. There is clearing of the constipation compared to old exam. Extensive pancreatic calcification consistent with chronic pancreatitis unchanged. 2. KUB X-Ray: Nonacute abdomen PAST MEDICAL HISTORY: See list. PAST SURGICAL HISTORY: See list. MEDICATIONS: See list. ALLERGIES: See list. SOCIAL HISTORY: Reports occasional marijuana use. Daily cigarette smoker. Daily alcohol use. REVIEW OF ORGAN SYSTEMS: CONSTITUTIONAL: Denies fever or chills. HEENT: No troubles with vision or hearing. No reports of dysphagia. ENDOCRINE: No reports of thyroid disorders. Reports history of diabetes. CARDIOVASCULAR: No heart attack. No chest pain. RESPIRATORY: No shortness of breath or pneumonia. GASTROINTESTINAL: Reports abdominal pain prior to admission. Reports black stools. NEURO: No reports of stroke or seizure disorders. PSYCH: No depression or suicidal ideation HEMATOLOGIC: No easy bruising or bleeding LYMPHATIC: The patient denies any lumps and bumps around the neck. GENITOURINARY: Denies any blood in urine or increased urinary frequency. MUSCULOSKELETAL: Denies back pain, stiffness or joint arthritis. SKIN: Denies history or rash or cellulitis. PHYSICAL EXAM: VITAL SIGNS: Currently stable. GENERAL: Well-developed in no acute distress. HEENT: No sclera icterus. Extraocular movements grossly intact. Moist buccal mucosa. Head is atraumatic, normocephalic. Hears conversational speech. No nasal drainage. NECK: Supple without lymphadenopathy. CHEST: Non-labored respirations and equal bilateral excursions. CARDIOVASCULAR: Regular rate with regular rhythm. Palpable 2+ radial pulses. ABDOMEN: Soft. Nondistended. No peritonitis. Mild epigastric tenderness upon palpation. MUSCULOSKELETAL: No clubbing, cyanosis or edema. NEUROLOGIC: No focal or lateralizing signs. Cranial nerves II through XII grossly intact. PSYCH: Alert and oriented x 3 SKIN: Well perfused. Good skin turgor. ASSESSMENT: 1. Abdominal pain, CT reveals a few small bowel loops distended with fluid in the left upper quadrant consistent with ileus 2. Ileus 3. Dark stools, patient reports taking pepto bismol at home, stool for occult blood negative, r/o GI bleeding 4. Chronic pancreatitis 5. Daily alcohol use 6. Leukocytosis 7. Transaminitis PLAN: May begin clear liquid diet. No surgical intervention at this time. Nurse practitioner note has been reviewed by physician. Signing provider agrees with the documented findings, assessment, and plan of care. Past Medical History Past Medical History: Diabetes Mellitus, GERD/Reflux, Hyperlipidemia, Hypertension, Liver Disease, Seizure Disorder Additional Past Medical History / Comment(s): IDDM type I with insulin pump, DKA , neuropathy bilateral feet, metabolic encephalitis post seizure, seizures-last one 2015, fatty liver, occasional low back pain, gastritis, hiatal hernina, abdominal pain/vomiting and diarrhea at times, gout bilateral feet. History of Any Multi-Drug Resistant Organisms: None Reported Past Surgical History: Back Surgery Additional Past Surgical History / Comment(s): EGDs/colonoscopies, low back spinal fusion, L toes with screws/bunionectomy. Past Anesthesia/Blood Transfusion Reactions: Motion Sickness Smoking Status: Current every day smoker - Past Family History Father Family Medical History: Unable to Obtain Additional Family Medical History / Comment(s): Father was murdered in his 30's Mother Family Medical History: No Reported History, Hypertension Additional Family Medical History / Comment(s): Mother is 64 yrs old. Mother is 64 yrs old Brother(s) Family Medical History: Hypertension Sister(s) Family Medical History: Hypertension Medications and Allergies Home Medications Medication Instructions Recorded Confirmed Type Folic Acid 1 mg PO DAILY 10/04/13 04/05/18 History Lisinopril [Zestril] 10 mg PO DAILY 10/04/13 04/05/18 History Thiamine [Vitamin B-1] 100 mg PO DAILY 10/04/13 04/05/18 History Omeprazole [PriLOSEC] 20 mg PO AC-BRKFST 02/28/15 04/05/18 History Hydrocodone/Acetaminophen [[place] 1 tab PO BID PRN 09/18/15 04/05/18 History 7.5-325] Lacosamide [Vimpat] 100 mg PO BID 09/18/15 04/05/18 History Potassium Chloride ER [K-Dur 10] 10 meq PO DAILY 09/18/15 04/05/18 History levETIRAcetam [Keppra] 500 mg PO BID 11/11/15 04/05/18 History Magnesium Oxide [Mag-Ox] 400 mg PO BID 06/22/17 04/05/18 History PARoxetine HCL [Paxil] 30 mg PO DAILY 06/22/17 04/05/18 History Atorvastatin [Lipitor] 10 mg PO DAILY 04/05/18 04/05/18 History INSULIN LISPRO (For Pump) [humaLOG 0.01 units SQ-PUMP CONTINUOUS 04/05/18 History (For Pump)] Lipase/Protease/Amylase [[place] Dr 24,000 units PO TID 04/05/18 04/05/18 History 12,000 Units Capsule] QUEtiapine [SEROquel] 100 mg PO HS 04/05/18 04/05/18 History Vitamin D2 20,000 Units 20,000 units PO MO 04/05/18 04/05/18 History Allergies Allergy/AdvReac Type Severity Reaction Status Date / Time No Known Allergies Allergy Verified 04/05/18 06:44 Surgical - Exam Vital Signs Temp Pulse Resp BP Pulse Ox 97.7 F 104 H 18 102/68 99 04/04/18 23:29 04/04/18 23:29 04/04/18 23:29 04/04/18 23:29 04/04/18 23:29 Results - Labs 04/05/18 00:26 04/05/18 00:26 Abnormal Lab Results - Last 24 Hours (Table) 04/05/18 04/05/18 04/05/18 Range/Units 00:26 00:26 00:26 WBC 11.4 H (3.8-10.6) k/uL RBC 4.24 L (4.30-5.90) m/uL Hgb 12.6 L (13.0-17.5) gm/dL Hct 38.4 L (39.0-53.0) % Sodium 135 L (137-145) mmol/L Chloride 92 L (98-107) mmol/L BUN 22 H (9-20) mg/dL Glucose 215 H (74-99) mg/dL POC Glucose (mg/dL) (75-99) mg/dL Plasma Lactic Acid Erlin 4.7 H* (0.7-2.0) mmol/L Calcium 11.0 H (8.4-10.2) mg/dL AST 105 H (17-59) U/L ALT 74 H (21-72) U/L Total Protein 9.1 H (6.3-8.2) g/dL Albumin 5.3 H (3.5-5.0) g/dL Lipase 10 L (23-300) U/L 04/05/18 Range/Units 12:29 WBC (3.8-10.6) k/uL RBC (4.30-5.90) m/uL Hgb (13.0-17.5) gm/dL Hct (39.0-53.0) % Sodium (137-145) mmol/L Chloride (98-107) mmol/L BUN (9-20) mg/dL Glucose (74-99) mg/dL POC Glucose (mg/dL) 156 H (75-99) mg/dL Plasma Lactic Acid Erlin (0.7-2.0) mmol/L Calcium (8.4-10.2) mg/dL AST (17-59) U/L ALT (21-72) U/L Total Protein (6.3-8.2) g/dL Albumin (3.5-5.0) g/dL Lipase (23-300) U/L Diabetes panel 04/05/18 Range/Units 00:26 Sodium 135 L (137-145) mmol/L Potassium 4.0 (3.5-5.1) mmol/L Chloride 92 L (98-107) mmol/L Carbon Dioxide 25 (22-30) mmol/L BUN 22 H (9-20) mg/dL Creatinine 1.18 (0.66-1.25) mg/dL Glucose 215 H (74-99) mg/dL Calcium 11.0 H (8.4-10.2) mg/dL AST 105 H (17-59) U/L ALT 74 H (21-72) U/L Alkaline Phosphatase 113 (38-126) U/L Total Protein 9.1 H (6.3-8.2) g/dL Albumin 5.3 H (3.5-5.0) g/dL Calcium panel 04/05/18 Range/Units 00:26 Calcium 11.0 H (8.4-10.2) mg/dL Albumin 5.3 H (3.5-5.0) g/dL Pituitary panel 04/05/18 Range/Units 00:26 Sodium 135 L (137-145) mmol/L Potassium 4.0 (3.5-5.1) mmol/L Chloride 92 L (98-107) mmol/L Carbon Dioxide 25 (22-30) mmol/L BUN 22 H (9-20) mg/dL Creatinine 1.18 (0.66-1.25) mg/dL Glucose 215 H (74-99) mg/dL Calcium 11.0 H (8.4-10.2) mg/dL Adrenal panel 04/05/18 Range/Units 00:26 Sodium 135 L (137-145) mmol/L Potassium 4.0 (3.5-5.1) mmol/L Chloride 92 L (98-107) mmol/L Carbon Dioxide 25 (22-30) mmol/L BUN 22 H (9-20) mg/dL Creatinine 1.18 (0.66-1.25) mg/dL Glucose 215 H (74-99) mg/dL Calcium 11.0 H (8.4-10.2) mg/dL Total Bilirubin 0.8 (0.2-1.3) mg/dL AST 105 H (17-59) U/L ALT 74 H (21-72) U/L Alkaline Phosphatase 113 (38-126) U/L Total Protein 9.1 H (6.3-8.2) g/dL Albumin 5.3 H (3.5-5.0) g/dL
[2018-04-05 17:06] LABS: Glucose,Whole Blood 172 mg/dL (75-99)
[2018-04-05] MEDS ORDERED: INSULIN ASPART 100 UNIT/ML 1 ML 10 ML VIAL SQ ONE (17:45)
[2018-04-05 20:31] LABS: Glucose,Whole Blood 171 mg/dL (75-99)
[2018-04-05] MEDS ORDERED: HEPARIN SODIUM,PORCINE 5,000 UNIT/ML 1 ML VIAL SQ SCH (21:00)
[2018-04-05] MEDS ORDERED: MIRTAZAPINE 45 MG TABLET PO SCH (21:00)
[2018-04-06] MEDS: INSULIN LISPRO (For Pump) 100 UNIT/ML VIAL SQ-PUMP SCH ×3 (03:59→12:23)
[2018-04-06] MEDS: SODIUM CHLORIDE 0.9% 1,000 ML IV SCH (06:47)
[2018-04-06] MEDS: PARoxetine 10 MG TAB PO SCH (07:44)
[2018-04-06] MEDS: LISINOPRIL 10 MG TAB PO SCH (07:45)
[2018-04-06] MEDS: FAMOTIDINE 20 MG TAB PO SCH (07:45)
[2018-04-06] MEDS: levETIRAcetam 500 MG TAB PO SCH (07:45)
[2018-04-06 07:46] LABS: Glucose,Whole Blood 107 mg/dL (75-99)
[2018-04-06 10:12] LABS: ALT 68 U/L (21-72); AST 111 U/L (17-59); Albumin 4.1 g/dL (3.5-5.0); Alkaline Phosphatase 84 U/L (38-126); Anion Gap 5 mmol/L; Blood Urea Nitrogen 10 mg/dL (9-20); Calcium 9.9 mg/dL (8.4-10.2); Carbon Dioxide 29 mmol/L (22-30); Chloride 109 mmol/L (98-107); Glucose 95 mg/dL (74-99); Potassium 3.8 mmol/L (3.5-5.1); Sodium 143 mmol/L (137-145); Total Bilirubin 0.8 mg/dL (0.2-1.3); Total Protein 7.1 g/dL (6.3-8.2)
[2018-04-06 10:18] LABS: Basophils # (A) 0.1 k/uL (0-0.2); Basophils % (A) 1 %; Eosinophils # (A) 0.6 k/uL (0-0.7); Eosinophils % (A) 9 %; HCT 37.5 % (39.0-53.0); HGB 11.8 gm/dL (13.0-17.5); Lymphocytes # (A) 2.4 k/uL (1.0-4.8); Lymphocytes % (A) 37 %; MCH 29.4 pg (25.0-35.0); MCHC 31.5 g/dL (31.0-37.0); MCV 93.3 fL (80.0-100.0); Mean Platelet Volume 6.8; Monocytes # (A) 0.4 k/uL (0-1.0); Monocytes % (A) 6 %; Neutrophils # (A) 2.9 k/uL (1.3-7.7); Neutrophils % (A) 44 %; Platelet Count 167 k/uL (150-450); RBC 4.02 m/uL (4.30-5.90); RDW 12.7 % (11.5-15.5); WBC 6.6 k/uL (3.8-10.6)
--- NOTE | 2018-04-06 10:45 | P.PN ---
Subjective Progress Note Date: 04/06/18 CHIEF COMPLAINT: Abdominal pain. Ileus HISTORY OF PRESENT ILLNESS: 42-year-old -[place] male who presented to the emergency room due to abdominal pain. Patient currently denies abdominal pain. Denies nausea or vomiting. Reports passing flatus. Denies BM. Tolerating clear liquid diet. Hemoglobin 11.8. WBC 6.6 PHYSICAL EXAM: VITAL SIGNS: Currently stable. GENERAL: Well-developed in no acute distress. HEENT: No sclera icterus. Extraocular movements grossly intact. Moist buccal mucosa. Head is atraumatic, normocephalic. Hears conversational speech. No nasal drainage. NECK: Supple without lymphadenopathy. CHEST: Non-labored respirations and equal bilateral excursions. CARDIOVASCULAR: Regular rate with regular rhythm. Palpable 2+ radial pulses. ABDOMEN: Soft. Nondistended. No peritonitis. MUSCULOSKELETAL: No clubbing, cyanosis or edema. NEUROLOGIC: No focal or lateralizing signs. Cranial nerves II through XII grossly intact. PSYCH: Alert and oriented x 3 SKIN: Well perfused. Good skin turgor. ASSESSMENT: 1. Abdominal pain, CT reveals a few small bowel loops distended with fluid in the left upper quadrant consistent with ileus 2. Ileus 3. Dark stools, patient reports taking pepto bismol at home, stool for occult blood negative, r/o GI bleeding 4. Chronic pancreatitis 5. Daily alcohol use 6. Leukocytosis 7. Transaminitis PLAN: Advance diet to full liquid for lunch. May advance as tolerated. Await BM. No surgical intervention at this time. Await further recommendations from GI. Nurse practitioner note has been reviewed by physician. Signing provider agrees with the documented findings, assessment, and plan of care. Objective - Vital Signs Vital signs: Vital Signs Temp 96.8 F L 04/06/18 06:11 Pulse 81 04/06/18 06:11 Resp 17 04/06/18 07:47 BP 126/75 04/06/18 06:11 Pulse Ox 99 04/06/18 06:11 Intake & Output 04/05/18 04/06/18 04/06/18 18:59 06:59 18:59 Weight 52 kg Other: Voiding Method Toilet Toilet # Voids 1 - Labs CBC & Chem 7: 04/06/18 09:35 04/06/18 09:35 Labs: Abnormal Lab Results - Last 24 Hours (Table) 04/05/18 04/05/18 04/05/18 Range/Units 12:29 17:04 20:31 RBC (4.30-5.90) m/uL Hgb (13.0-17.5) gm/dL Hct (39.0-53.0) % Chloride (98-107) mmol/L POC Glucose (mg/dL) 156 H 172 H 171 H (75-99) mg/dL AST (17-59) U/L 04/06/18 04/06/18 04/06/18 Range/Units 07:30 09:35 09:35 RBC 4.02 L (4.30-5.90) m/uL Hgb 11.8 L (13.0-17.5) gm/dL Hct 37.5 L (39.0-53.0) % Chloride 109 H (98-107) mmol/L POC Glucose (mg/dL) 107 H (75-99) mg/dL AST 111 H (17-59) U/L
--- NOTE | 2018-04-06 11:17 | P.PN ---
Subjective this is a pleasant 42 years old [facility] Americanmale with past medical history of diabetes mellitus, hypertension, hyperlipidemia, GERD, seizure disorder, diabetic neuropathy, fatty liver, occasional low back pain.he presents because of abdominal pain. Patient states that his pain was in the epigastrium, severe 10/10 in severity on admission when he started 1-2 days ago coming down to 1/10 in severity currently. Lack some sick wheeze, nonradiating. Associated with black stool and blood in his vomiting as he has some nausea and vomiting as well. on admission Vitas looks stable. He has mild leukocytosis at 11.4. BMP was unremarkable except for mild hyponatremia. High lactic acid of 4.7 came back to normal 0.9.CT of the abdomen with contrast showing diffuse small bowel loops distended with fluid in the left upper quadrant consistent with ileus, with extensive pancreatic calcification consistent with chronic pancreatitis, and change 04/06/2018 Patient feels better today and he is telling me abdominal pain is 0/10 in severity. No nausea vomiting. He is tolerating his liquid diet well and he was sent to be advanced to regular diet. He is passing gases spots no bowel movement.. Vitals stable with no fever. WBC within normal limits and his hemoglobin is 11.8. BMP and liver enzymes were unremarkable except for mildly elevated AST. Surgical follow-up is appreciated. Objective - Vital Signs Vital signs: Vital Signs Temp 96.8 F L 04/06/18 06:11 Pulse 81 04/06/18 06:11 Resp 17 04/06/18 07:47 BP 126/75 04/06/18 06:11 Pulse Ox 99 04/06/18 06:11 Intake & Output 04/05/18 04/06/18 04/06/18 18:59 06:59 18:59 Weight 52 kg Other: Voiding Method Toilet Toilet # Voids 1 - Exam GENERAL: The patient is alert and oriented x3, not in any acute distress. Well developed, well nourished. HEENT: Pupils are round and equally reacting to light. EOMI. No scleral icterus. No conjunctival pallor. Normocephalic, atraumatic. No pharyngeal erythema. No thyromegaly. CARDIOVASCULAR: S1 and S2 present. No murmurs, rubs, or gallops. PULMONARY: Chest is clear to auscultation, no wheezing or crackles. ABDOMEN: Soft, nontender, nondistended, normoactive bowel sounds. No palpable organomegaly. MUSCULOSKELETAL: No joint swelling or deformity. EXTREMITIES: No cyanosis, clubbing, or pedal edema. NEUROLOGICAL: Gross neurological examination did not reveal any focal deficits. SKIN: No rashes. - Labs CBC & Chem 7: 04/06/18 09:35 04/06/18 09:35 Labs: Abnormal Lab Results - Last 24 Hours (Table) 04/05/18 04/05/18 04/05/18 Range/Units 12:29 17:04 20:31 RBC (4.30-5.90) m/uL Hgb (13.0-17.5) gm/dL Hct (39.0-53.0) % Chloride (98-107) mmol/L POC Glucose (mg/dL) 156 H 172 H 171 H (75-99) mg/dL AST (17-59) U/L 04/06/18 04/06/18 04/06/18 Range/Units 07:30 09:35 09:35 RBC 4.02 L (4.30-5.90) m/uL Hgb 11.8 L (13.0-17.5) gm/dL Hct 37.5 L (39.0-53.0) % Chloride 109 H (98-107) mmol/L POC Glucose (mg/dL) 107 H (75-99) mg/dL AST 111 H (17-59) U/L Assessment and Plan Assessment: ileus versus early small bowel obstruction black stool and blood in vomiting History of insulin-dependent diabetes mellitus Hypertension, essential Hyperlipidemia GERD Fatty liver history of Seizure disorder diabetic neuropathy Plan: this is a pleasant 42 years old male who presents because of abdominal pain. Keep the patient nothing by mouth, call surgical S consult. Pain management and IV fluids. Consult GI too. he was on ibuprofen which was stopped.Labs and medication were reviewed..pain management. Continue same treatment. Continue with symptomatic treatment. Resume home medication. Monitor lytes and vitals. DVT and GI prophylaxis. Further recommendations of the clinical course of the patient DVT prophylaxis: no heparin review of possible GI bleed. Mechanical GI Prophylaxis: Pepcid Prognosis is guarded
[2018-04-06 12:09] LABS: Glucose,Whole Blood 88 mg/dL (75-99)
--- NOTE | 2018-04-06 13:37 | P.CONS ---
History of Present Illness - Reason for Consult Consult date: 04/06/18 Coffee-ground emesis possible melena Requesting physician: Mac E Sheet - Chief Complaint Coffee-ground emesis abdominal pain - History of Present Illness 42-year-old male passed a history of pancreatitis, chronic daily alcohol consumption, NSAID usage for arthritic pain admitted with epigastric pain coffee -ground emesis and black colored stool. Patient has been taking Pepto-Bismol also is not sure if the black stools related to Pepto-Bismol or bleeding. Denies gross hematochezia. No history of peptic ulcer disease or GI bleed. CT abdomen diffuse small bowel loops distended with fluid and left upper quadrant consistent with ileus. General surgery following no surgical plans at this time. No recent EGD. Feels well today. Denies abdominal pain. No further emesis. No passage of black or red stool. Tolerating regular diet. Admission hemoglobin 12.6 presently 11.8. Platelet 167. FOBT negative. BUN 22. Creatinine 1.1. Review of Systems Constitutional: Denies fever, chills, sweats, weight gain, or loss. HEENT: Negative for migraines, blurred vision or loss, earaches, drainage, tinnitus, oral mucosal lesions, dysphagia, or odynophagia. Cardiac: Negative for chest pain, arrhythmias, or palpitation. Respiratory: Negative for shortness of breath, hemoptysis, cough, or sputum production. Gastrointestinal: See HPI for pertinent findings. Genitourinary: Negative for hematuria, urgency, frequency, polyuria, dysuria, or penile discharge. Musculoskeletal: Negative for muscle aches, swelling, arthritis, and arthralgias. Neurologic: Negative for stroke or TIA. Endocrine: Negative for thyroid problems. Skin: Negative for rash or itching. Psychiatric: Negative history for depression and anxiety Past Medical History Past Medical History: Diabetes Mellitus, GERD/Reflux, Hyperlipidemia, Hypertension, Liver Disease, Seizure Disorder Additional Past Medical History / Comment(s): IDDM type I with insulin pump, DKA , neuropathy bilateral feet, metabolic encephalitis post seizure, seizures-last one 2015, fatty liver, occasional low back pain, gastritis, hiatal hernina, abdominal pain/vomiting and diarrhea at times, gout bilateral feet. History of Any Multi-Drug Resistant Organisms: None Reported Past Surgical History: Back Surgery Additional Past Surgical History / Comment(s): EGDs/colonoscopies, low back spinal fusion, L toes with screws/bunionectomy. Past Anesthesia/Blood Transfusion Reactions: Motion Sickness Smoking Status: Current every day smoker - Past Family History Father Family Medical History: Unable to Obtain Additional Family Medical History / Comment(s): Father was murdered in his 30's Mother Family Medical History: No Reported History, Hypertension Additional Family Medical History / Comment(s): Mother is 64 yrs old. Mother is 64 yrs old Brother(s) Family Medical History: Hypertension Sister(s) Family Medical History: Hypertension Medications and Allergies Home Medications Medication Instructions Recorded Confirmed Type Folic Acid 1 mg PO DAILY 10/04/13 04/05/18 History Lisinopril [Zestril] 10 mg PO DAILY 10/04/13 04/05/18 History Thiamine [Vitamin B-1] 100 mg PO DAILY 10/04/13 04/05/18 History Omeprazole [PriLOSEC] 20 mg PO AC-BRKFST 02/28/15 04/05/18 History Hydrocodone/Acetaminophen [[place] 1 tab PO BID PRN 09/18/15 04/05/18 History 7.5-325] Lacosamide [Vimpat] 100 mg PO BID 09/18/15 04/05/18 History Potassium Chloride ER [K-Dur 10] 10 meq PO DAILY 09/18/15 04/05/18 History levETIRAcetam [Keppra] 500 mg PO BID 11/11/15 04/05/18 History Magnesium Oxide [Mag-Ox] 400 mg PO BID 06/22/17 04/05/18 History PARoxetine HCL [Paxil] 30 mg PO DAILY 06/22/17 04/05/18 History Atorvastatin [Lipitor] 10 mg PO DAILY 04/05/18 04/05/18 History INSULIN LISPRO (For Pump) [humaLOG 0.01 units SQ-PUMP CONTINUOUS 04/05/18 History (For Pump)] Lipase/Protease/Amylase [[place] Dr 24,000 units PO TID 04/05/18 04/05/18 History 12,000 Units Capsule] QUEtiapine [SEROquel] 100 mg PO HS 04/05/18 04/05/18 History Vitamin D2 20,000 Units 20,000 units PO MO 04/05/18 04/05/18 History Allergies Allergy/AdvReac Type Severity Reaction Status Date / Time No Known Allergies Allergy Verified 04/05/18 06:44 Physical Exam Vitals: Vital Signs Temp Pulse Resp BP Pulse Ox 04/06/18 07:47 17 04/06/18 06:11 96.8 F L 81 17 126/75 99 04/05/18 23:00 98.7 F 65 17 143/71 100 04/05/18 15:57 16 04/05/18 14:58 99.5 F 69 16 119/68 99 Intake and Output 04/05/18 04/06/18 04/06/18 22:59 06:59 14:59 Other: Voiding Method Toilet Toilet # Voids 2 1 Weight 52 kg General appearance: The patient is alert, oriented, in no acute distress. HET: Head is normocephalic and atraumatic. Pupils are equal and reactive. Oropharynx is clear without lesions. Neck: Supple without lymphadenopathy. Trachea midline. Heart: S1 S2. Regular rate and rhythm. Lungs: No crackles or wheezes are heard. Abdomen: Soft, nontender, nondistended with bowel sounds. No peritoneal signs. No palpable organomegaly or masses. Extremities: Normal skin color and turgor. No cyanosis, rash, ulceration, clubbing, or edema. Radial and pedal pulses are 2/4 bilaterally. Neurological: No focal deficits. Strength and sensation are grossly intact. Results CBC & Chem 7: 04/06/18 09:35 04/06/18 09:35 Labs: Abnormal Lab Results - Last 24 Hours (Table) 04/05/18 04/05/18 04/06/18 Range/Units 17:04 20:31 07:30 RBC (4.30-5.90) m/uL Hgb (13.0-17.5) gm/dL Hct (39.0-53.0) % Chloride (98-107) mmol/L POC Glucose (mg/dL) 172 H 171 H 107 H (75-99) mg/dL AST (17-59) U/L 04/06/18 04/06/18 Range/Units 09:35 09:35 RBC 4.02 L (4.30-5.90) m/uL Hgb 11.8 L (13.0-17.5) gm/dL Hct 37.5 L (39.0-53.0) % Chloride 109 H (98-107) mmol/L POC Glucose (mg/dL) (75-99) mg/dL AST 111 H (17-59) U/L CT scan - abdomen: report reviewed (Dr. Whitaker) Assessment and Plan (1) Coffee ground emesis Narrative/Plan: 42-year-old male admitted with acute abdominal pain possible ileus with coffee- ground emesis possible [place]-Kim tear possible alcohol-induced gastritis esophagitis duodenitis. Passage of black-colored stool most likely secondary to Pepto-Bismol with negative FOBT. No further episodes of bleeding abdominal pain is resolved. Current Visit: Yes Status: Acute Code(s): K92.0 - HEMATEMESIS SNOMED Code( s): 02126948 (2) Abdominal pain Current Visit: Yes Status: Acute Code(s): R10.9 - UNSPECIFIED ABDOMINAL PAIN SNOMED Code(s): 89167566 Plan: 1. From a GI standpoint inpatient endoscopic exams not planned this patient abdominal pain nausea vomiting resolved, FOBT negative. Patient was advised to abstain from alcohol. Recommend Protonix 40 mg daily 2 weeks after discharge. If patient develops symptoms of hematemesis hematochezia melena and/or recurrence of abdominal pain is advised to return to the emergency room for reevaluation. Thank you for this kind referral and the opportunity to participate in the care of your patient. This consultation was discussed with Dr. Whitaker. The impression and plan of care have been directed as dictated.
[2018-04-06] MEDS ORDERED: INSULIN PUMP BASAL RATES 1 EACH MISC MISCELLANE PRN (13:58)
[2018-04-06] MEDS ORDERED: INSPUCOR MISCELLANE PRN (13:58)
[2018-04-06] MEDS ORDERED: INSULIN ASPART 100 UNIT/ML 1 ML 10 ML VIAL SQ PRN ×2 (13:58→14:31)
[2018-04-06] MEDS ORDERED: INSULIN PUMP ACTIVE INSULIN 1 EACH MISC MISCELLANE PRN (14:31)
[2018-04-06] MEDS ORDERED: INSULIN PUMP TARGET GLUCOSE 1 EACH MISC MISCELLANE PRN (14:31)
[2018-04-06 14:45] VITALS: BP 149/89; PULSE 71; RESP 16; TEMP 98.5
[2018-04-06] MEDS ORDERED: PNEUMOCOCCAL VACC-PNEUMOVAX 23 25 MCG/0.5 ML VIAL IM ONE (14:54)
[2018-04-06] MEDS ORDERED: INFLUENZA VACCINE (6 MOS+) 60 MCG/0.5 ML SYRINGE IM ONE (14:55)
[2018-04-06 15:50] VITALS: BMI 17.9
[2018-04-06 17:27] LABS: Hemoglobin A1C 7.1 % (4.0-6.0)
[2018-04-06] MEDS ORDERED: INSULIN PUMP MEAL BOLUS 1 UNIT MISC MISCELLANE SCH (17:30)
--- NOTE | 2018-04-10 18:57 | P.DS ---
Providers Date of admission: 04/05/18 02:33 Attending physician: Moe Duncan Consults: 04/05/18 11:58 Consult Physician Urgent Consulting Provider: Negro Landaverde Consult Reason/Comments: ileus Do you want consulting provider notified?: Yes 04/05/18 14:01 Consult Physician Urgent Consulting Provider: Raymon Whitaker Consult Reason/Comments: hematamesis and black stool Do you want consulting provider notified?: Yes Primary care physician: [facility] Course: Date of service: 03/27/2017 this is a pleasant 42 years old Susanna Thai male with past medical history of diabetes mellitus, hypertension, hyperlipidemia, GERD, seizure disorder, diabetic neuropathy, fatty liver, occasional low back pain.he presents because of abdominal pain. Patient states that his pain was in the epigastrium, severe 10/10 in severity on admission when he started 1-2 days ago coming down to 01/ 10 in severity upon discharge. Associated with black stool and blood in his vomiting as he has some nausea and vomiting as well. .CT of the abdomen with contrast showing diffuse small bowel loops distended with fluid in the left upper quadrant consistent with ileus, with extensive pancreatic calcification consistent with chronic pancreatitis. He has mild leukocytosis at 11.4. which came back to normal upon discharge. which was treated with iv fluid , pain management and holding his diet. surgical team were following the pt . pt showed interval improvements in his signs and symptoms and on the day of discharge his abd pain , n/v were resolved completely. he tolerated regular diet and had bowel movement. pt was cleared for discharge by surgery and GI teams . given protonix for 2 wks recommended by GI team . Pt was instructed about the problems and management plan and Pt verbalized understanding and acceptance Pt is found stable and can be discharged to the community but needs follow up as outpt. pt agreed with appointments and timing for PCP and surgery f/u Discharge exam Gen.: Patient alert awake and oriented X 3, NOT IN DISTRESS CVS: s1-s2, RRR, no murmur CHEST:bilateral CTA, no wheezing or crepitation Abdomen: Soft, no tenderness, no distention, positive bowel sounds Extremities: No leg edema or induration time spent : more than 35 min Patient Condition at Discharge: Stable Plan - Discharge Summary Discharge Rx Participant: Yes New Discharge Prescriptions: New Mirtazapine [Remeron] 45 mg PO HS tablet Pantoprazole Sodium [Protonix] 40 mg PO DAILY #15 tablet.dr Continue Thiamine [Vitamin B-1] 100 mg PO DAILY Lisinopril [Zestril] 10 mg PO DAILY Folic Acid 1 mg PO DAILY Hydrocodone/Acetaminophen [[place] 7.5-325] 1 tab PO BID PRN PRN Reason: Pain Lacosamide [Vimpat] 100 mg PO BID Potassium Chloride ER [K-Dur 10] 10 meq PO DAILY levETIRAcetam [Keppra] 500 mg PO BID PARoxetine HCL [Paxil] 30 mg PO DAILY Magnesium Oxide [Mag-Ox] 400 mg PO BID QUEtiapine [SEROquel] 100 mg PO HS Lipase/Protease/Amylase [[place] 12,000 Units Capsule] 24,000 units PO TID Atorvastatin [Lipitor] 10 mg PO DAILY Vitamin D2 20,000 Units 20,000 units PO MO INSULIN LISPRO (For Pump) [humaLOG (For Pump)] 0.01 units SQ-PUMP CONTINUOUS Discontinued Omeprazole [PriLOSEC] 20 mg PO AC-BRKFST Discharge Medication List Folic Acid 1 mg PO DAILY 10/04/13 [History] Lisinopril [Zestril] 10 mg PO DAILY 10/04/13 [History] Thiamine [Vitamin B-1] 100 mg PO DAILY 10/04/13 [History] Hydrocodone/Acetaminophen [[place] 7.5-325] 1 tab PO BID PRN 09/18/15 [History] Lacosamide [Vimpat] 100 mg PO BID 09/18/15 [History] Potassium Chloride ER [K-Dur 10] 10 meq PO DAILY 09/18/15 [History] levETIRAcetam [Keppra] 500 mg PO BID 11/11/15 [History] Magnesium Oxide [Mag-Ox] 400 mg PO BID 06/22/17 [History] PARoxetine HCL [Paxil] 30 mg PO DAILY 06/22/17 [History] Atorvastatin [Lipitor] 10 mg PO DAILY 04/05/18 [History] INSULIN LISPRO (For Pump) [humaLOG (For Pump)] 0.01 units SQ-PUMP CONTINUOUS [History] Lipase/Protease/Amylase [Aj Roman 12,000 Units Capsule] 24,000 units PO TID [History] QUEtiapine [SEROquel] 100 mg PO HS 04/05/18 [History] Vitamin D2 20,000 Units 20,000 units PO MO 04/05/18 [History] Mirtazapine [Remeron] 45 mg PO HS tablet 04/06/18 [Rx] Pantoprazole Sodium [Protonix] 40 mg PO DAILY #15 tablet. 04/06/18 [Rx] Follow up Appointment(s)/Referral(s): Chelsea Minaya MD [Primary Care Provider] - 04/11/18 10:15 am Negro Landaverde MD [STAFF PHYSICIAN] - 04/14/18 1:30 pm Patient Instructions/Handouts: Ileus (DC) Activity/Diet/Wound Care/Special Instructions: Flu and pneumo vaccine given on discharge with VIS Diabetic diet as tolerated. Resume regular activities. No smoking or alcohol use. Discharge Disposition: HOME SELF-CARE
== END 2018-04-06 16:51 | disposition home or self-care (01) ==
LOC: EC 23:23 → INTOOBSV 04-05 02:33 → 4MS4W 04-05 02:33 → UNDODISIN 04-06 16:51
PROVIDERS: ADMIT Internal Medicine; ATTEND Internal Medicine
DX: K56.7 Ileus, unspecified (principal); K86.1 Other chronic pancreatitis; E87.1 Hypo-osmolality and hyponatremia; K92.0 Hematemesis; D57.3 Sickle-cell trait; R19.5 Other fecal abnormalities; E10.42 Type 1 diabetes mellitus with diabetic polyneuropathy; D72.829 Elevated white blood cell count, unspecified; E78.5 Hyperlipidemia, unspecified; E86.0 Dehydration; F17.210 Nicotine dependence, cigarettes, uncomplicated; G40.909 Epilepsy, unspecified, not intractable, without status epilepticus; I10 Essential (primary) hypertension; K21.9 Gastro-esophageal reflux disease without esophagitis; K76.0 Fatty (change of) liver, not elsewhere classified; M10.9 Gout, unspecified; Z72.89 Other problems related to lifestyle; M54.5 Low back pain; Z79.899 Other long term (current) drug therapy; Z96.41 Presence of insulin pump (external) (internal); Z79.4 Long term (current) use of insulin; Z87.19 Personal history of other diseases of the digestive system; Z86.61 Personal history of infections of the central nervous system; Z79.1 Long term (current) use of non-steroidal anti-inflammatories (NSAID); Z98.1 Arthrodesis status; Z82.49 Family history of ischemic heart disease and other diseases of the circulatory system; Z23 Encounter for immunization
CPT/HCPCS: 96376; 96361 ×2; 96374; 96375; 99285; 36415; 86900; 86901; 80053 ×2; 82150; 82550; 82553; 83605; 83690; 84484; 85025 ×2; 85610; 85730; 86850; 82272; 81003; 83036; 74018; 74177; 90732; 90686; G0378 ×2; G0008; G0009; J2270; J1170; Q9967

== ENCOUNTER → 2022-09-16 | Outpatient (CLI) | payer OTHER ==
[2022-09-17 02:06] LABS: ALT 23 U/L (10-49); AST 56 U/L (14-35); Albumin 4.7 d/dL (3.8-4.9); Albumin/Globulin Ratio 1.68 Ratio (1.60-3.17); Alkaline Phosphatase 99 U/L (41-126); Blood Urea Nitrogen 17.4 mg/dL (9.0-27.0); Calcium 9.7 mg/dL (8.7-10.3); Carbon Dioxide 21.5 mmol/L (21.6-31.8); Chloride 102 mmol/L (96-109); Globulin 2.8 d/dL (1.6-3.3); Glucose 151 mg/dL (70-110); LDL Cholesterol,Calculated 30.9 mg/dL (0.0-131.0); Lipase 6 U/L (14-60); Potassium 4.3 mmol/L (3.5-5.5); Sodium 140 mmol/L (135-145); Total Bilirubin 0.5 mg/dL (0.3-1.2); Total Protein 7.5 d/dL (6.2-8.2); Uric Acid 6.5 mg/dL (3.7-8.7)
[2022-09-17 02:31] LABS: Basophils # (A) 0.05 X 10*3/uL (0.00-0.10); Basophils % (A) 0.7 %; Eosinophils % (A) 6.8 %; HCT 35.7 % (39.6-50.0); HGB 11.8 d/dL (12.0-15.0); Lymphocytes # (A) 3.57 X 10*3/uL (0.90-5.00); Lymphocytes % (A) 48.8 %; MCH 29.3 pg (27.0-32.0); MCHC 33.1 d/dL (32.0-37.0); MCV 88.6 FL (80.0-97.0); Mean Platelet Volume 11.6 FL (9.5-12.2); Monocytes # (A) 0.71 X 10*3/uL (0.20-1.00); Monocytes % (A) 9.7 %; NRBC Per 100 WBC 0 X 10*3/uL (0.00-0.01); Neutrophils # (A) 2.47 X 10*3/uL (1.80-7.70); Neutrophils % (A) 33.9 %; Platelet Count 199 X 10*3/uL (140-440); RBC 4.03 X 10*6/uL (4.40-5.60); RDW 11.9 % (11.5-14.5); WBC 7.31 X 10*3/uL (4.50-10.00)
== END | disposition home or self-care (01) ==
LOC: LABWHC1 14:36
PROVIDERS: ATTEND Internal Medicine
DX: Z12.5 Encounter for screening for malignant neoplasm of prostate (principal); E10.9 Type 1 diabetes mellitus without complications; E78.5 Hyperlipidemia, unspecified; K86.89 Other specified diseases of pancreas
CPT/HCPCS: 36415; 80053; 80061; 83036; 83690; 84153; 84550; 85025